=== PATIENT | female | born 1990 | race Caucasian/White ===

== ENCOUNTER 2025-02-15 00:24 | Emergency (ER) | payer OTHER, SELFPAY ==
--- OUTSIDE RECORDS SUMMARY | 2025-01-20 05:50 | XMS_ITS ---
Author Organization [facility] Address [address] [place] [address] Care Team Providers Care Community Services Coordinator Name Role Phone NO PCP Primary Care Provider Maida Rodriguez Unavailable [phone] Allergies Allergen (clinical drug ingredient) Drug/Non Drug Allergy documented on EMR Reaction Allergy Type Onset Date Status Information temporarily unavailable Adhesive Unknown Allergy Active Information temporarily unavailable Amoxicillin Unknown Drug Allergy Active REASON FOR VISIT Possible Poison Juani Medications Medication SIG (Take, Route, Frequency, Duration) Notes Start Date End Date Status Triamcinolone Acetonide 0.1 % 1 application to rash on arms, legs and hands Externally twice a day; Duration: 7 days 01/20/2025 Active predniSONE 10 MG take 4 tablets the f irst 5 days, then take 2 tablets the next 5 days, then take 1 tablet the next 5 days Orally Once a day; Duration: 15 days 01/20/2025 02/04/2025 Active Social History Tobacco Use: Social History Observation Description Date Details (start date - stop date) Never Smoker NA - NA Sex Assigned At : Social History Observation Description Sex Assigned At Female Tobacco Control (Standard) Question Answer Notes Tobacco use: Nonsmoker Problems Problem Type SNOMED Code ICD Code Onset Dates Problem Status W/U Status Risk Notes Problem BMI 36.0-36.9,ad ult (Z68.36) Active confirmed Vital Signs Temperature 97.6 degrees Fahrenheit 01/21/20 25 Respiratory Rate 19 /min 01/20/2025 Blood pressure systolic 100 mm Hg 01/21/20 25 Blood pressure diastolic 70 mm Hg 025 Height 67 in 01/20/2025 Weight 235 lbs 01/20/2025 BMI 36.8 kg/m2 01/20/2025 Oximetry 99 01/20/2025 Encounters Encounter Location Date Provider Diagnosis [id number] [facility] [address] [place] [address] 01/20/2025 Maida Lubin Poison juani dermatitis L23.7 and BMI 36.0-36.9,adult Z68.36 Assessments Encounter Date Diagnosis (ICD Code) Assessment Notes Treatment Notes Treatment Clinical Notes Section Notes 01/20/2025 Poison juani dermatitis (ICD-10 - L23.7) Use cream as directed. Can put cream in refrigerator and cool sensation can help with ithing. Poison Juani, [place], and [place]: Care Instructions material was published, Dermatitis: Care Instructions material was published, Poison Juani, [place], and [place]: Care Instructions material was printed After prednisone was sent to pharmacy, patient shared she took steroids a month ago for poison juani. Advised pt it was not safe to repeat steroids within a the same 3 month timeframe so a cancellation request was sent to pharmcy for that prescription and advised only steroid cream for now. Pt understanding and agreeable to plan of care 01/20/2025 BMI 36.0-36.9,adul t (ICD-10 - Z68.36) Body Mass Index: Care Instructions material was published, Learning About Healthy Weight material was published 01/20/2025 Other Plan Of Treatment Medication Medication Name Sig Start Date Stop Date Notes Triamcinolone Acetonide 0.1 % 1 applicat ion to rash on arms, legs and hands Externally twice a day; Duration: 7 days 01/20/2025 predniSONE 10 MG take 4 tablets the f irst 5 days, then take 2 tablets the next 5 days, then take 1 tablet the next 5 days Orally Once a day; Duration: 15 days 01/20/2025 02/04/2025 Treatment Notes Assessment Notes Poison juani dermatitis Use cream as directed. Can put cream in refrigerator and cool sensation can help with ithing. Poison Juani, [place], and [place]: Care Instructions material was published, Dermatitis: Care Instructions material was published, Poison Juani, [place], and [place]: Care Instructions material was printed BMI 36.0-36.9,adult Body Mass Index: Car e Instructions material was published, Learning About Healthy Weight material was published Next Appt Details Follow Up: Follow up in 4-5 days if s/s persist or worsen, Reason: Progress Notes * Sweetie MATOS:[birth year] (34 yo F)Acc No.[id number]:01/20/2025 Progress Notes Patient: Frida QUINTANA Provider: Jose Lubin APN :1990 A ge:34 Y S ex:Female Date:01/20/2025 External Visit ID:[id number] Address:[address] [place] [address] [facility], [id number] Pcp:NO PCP Subjective: * Chief Complaints: * 1 . Possible Poison Juani. * HPI: D ermatological: 34 year old female presents with c/o rash f or 1 week?both legs, both arms, left hand, Onset: gradual, Severity: getting worse, Nature: itching, Aggravated by: heat, Relieved by: cream minimally, Associated Symptoms: none. Pt states she works outside and does [employer] and is exposed to poison juani frequently . c/o itching. Denies : signs of infection. * ROS: C ONSTITUTIONAL: no c hills. n o f atigue. n o b otoniel aches.?no f ever. * Medical History: A sthma, ADHD. * Surgical History: c -section x 2 , hysterectomy . * Hospitalization/Major Diagno stic Procedure: c hildbirth x 2, , hysterectomy . * Family History: N on-Contributory. * Social History: G eneral*: S igns of Abuse or Neglect: noBetsy Rachael 02/09/2024 12:24:53 PM CDT >, Mimi Meyer 05/30/2024 04:14:39 PM SECRETARY ADMINISTRATIVE ASSISTANT >. .: Betsy hardy Rachael 02/09/2024 12:24:57 PM CDT >. T obacco Use: T obacco Control (Standard) T obacco use: N onsmoker. * Medications: N one * Allergies: A moxicillin: Allergy, Adhesive: Allergy. Objective: * Vitals: T emp:97.6, Pulse:69, RR:19, BP:100/70, Pain (at time of visit):7/10, LNMP: hyst, Ht: 67, Wt: 235, BMI:36.8, Pulse Ox:99. * Examination: F ocused Exam: GENERAL: a lert and oriented x 4, no acute distress, dress appropriate for the environment & temp, well-groomed, appears well. HEAD: s ymmetrical facial features, normocephalic. RESPIRATORY: b reath sounds clear throughout, respiration even and unlabored. CARDIO: S 1 & S2 single sounds, no murmurs, gallops, rubs, or clicks, RRR. NEURO: g ait steady, judgment intact, alert and responsive, oriented to person, place, and time, alert and oriented. DERMATOLOGICAL: r eddened , patches and streaks of m aculopapular rash present on bilateral legs, right forearm, left hand. small area of rash present on left upper arm. no drainage or swelling present.. PSYCH: f riendly attitude. Assessment: * Assessment: 1. P oison juani dermatitis - L23.7 (Primary) 2 . B LA 36.0-36.9,adult - Z68.36 Plan: * Treatment: 2. B LA 36.0-36.9,adult Notes: Body Mass Index: Care Instructions material was published, Learning About Healthy Weight material was published * Follow Up: F ollow up in 4-5 days if s/s persist or worsen * Billing Information: * Visit Code: 43623 Office Visit, Est Pt., Level 3. * Procedure Codes: Care Plan Details* * Sign off status: Completed true * Provider: Jose Lubin APN Date: 01/20/2025 Generated for Cuauhtemoc giordano/Latesha/Karmen on: 02/15/2025 12:56 AM CDT History and Physical Notes * HPI (History of Present Illness) Category Sub-Category Detail Notes Category Not es Dermatological itching signs of infection rash both legs, both arms , left hand, Onset: gradual, Severity: getting worse, Nature: itching, Aggravated by: heat, Relieved by: cream minimally, Associated Symptoms: none. 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 small area of rash present on left upper arm. no drainage or swelling present. PSYCH: friendly attitude CARDIO: S1 & S2 single sound s, no murmurs, gallops, rubs, or clicks, RRR
[2025-02-15 00:29] VITALS: BP 143/73; PULSE 53; RESP 16; TEMP 36.6; O2SAT 98; BMI 34.9
--- NOTE | 2025-02-15 00:32 | ED.GENADULT ---
HPI - General Adult General Time Seen by Provider: 00:32 Date Seen: 02/15/25 Chief complaint: Urogenital Problems, Female Stated complaint: possible bladder infection Time Seen by Provider: 02/15/25 00:31 Source: patient, RN notes reviewed and old records reviewed Mode of arrival: ambulatory Limitations: no limitations History of Present Illness HPI narrative: 34-year-old female who comes in today with dysuria. Patient reports history of urinary tract infections. She has had pain with urination and some lower abdominal pain for the last 4 days. She denies fever, chills, nausea, vomiting, vaginal discharge, or flank pain. Denies possibility of . Related Data Home Medications ?Medication ?Instructions ?Recorded ?Confirmed No Known Home Medications 02/15/25 02/15/25 Allergies Allergy/AdvReac Type Severity Reaction Status Date / Time amoxicillin Allergy Verified 02/15/25 00:32 [facility] PFS Social History Smoking Status: Never smoker Do you use any of these nicotine containing products: None Non-prescribed substance use: denies use Exam Narrative: Exam Narrative: General: well nourished , NAD Head: Atraumatic and normocephalic ENT: External ears and external nose are normal Eyes: Conjunctiva clear, pupils are equal reactive, external ocular motions are intact Neck: Full spontaneous range of motion of the neck Lungs: No respiratory distress Musculoskeletal: No tenderness or deformity Neurologic: No gross focal neurologic deficits Skin: No rashes Psych: Mood and affect are appropriate Abdomen mild suprapubic tenderness, no CVA tenderness Const: Vital Signs, click to edit/add: Vital Signs - 24 hr 02/15/25 00:29 Temperature 97.8 F Pulse Rate [Pulse Oximeter] 53 L Respiratory Rate 16 Blood Pressure [Ri ght Upper Arm] 143/73 H Pulse Oximetry 98 Oxygen Delivery Me thod Room Air Course Course ED Course: No prior records available. Patient presents with dysuria, no flank pain, no fever, no abdominal pain. Urinalysis in the panel interpreted by me is nitrite positive. Patient will be started on Keflex and stable for discharge. Vital Signs Vital signs: Initial Vital Signs Temperature 97.8 F 02/15/25 00:29 Temperature Source Temporal Artery Scan 02/15/25 00:29 Pulse Rate 53 L 02/15/25 00:29 Respiratory Rate 16 02/15/25 00:29 Blood Pressure 143/73 H 02/15/25 00:29 Blood Pressure Mean 96 02/15/25 00:29 Blood Pressure Position Sitting 02/15/25 00:29 Pulse Oximetry 98 02/15/25 00:29 Oxygen Delivery Method Room Air 02/15/25 00:29 Vital Signs Temperature 97.8 F 02/15/25 00:29 Pulse Rate 53 L 02/15/25 00:29 Respiratory Rate 16 02/15/25 00:29 Blood Pressure 143/73 H 02/15/25 00:29 Pulse Oximetry 98 02/15/25 00:29 Oxygen Delivery Method Room Air 02/15/25 00:29 Temperature 97.8 F 02/15/25 00:29 Pulse Rate 53 L 02/15/25 00:29 Respiratory Rate 16 02/15/25 00:29 Blood Pressure 143/73 H 02/15/25 00:29 Pulse Oximetry 98 02/15/25 00:29 Oxygen Delivery Method Room Air 02/15/25 00:29 Medical Decision Making Lab Data Labs: Lab Results 02/15/25 Range/Units 00:29 Urine Color Yellow (Yellow) Urine Appearance Clear (Clear) Urine pH 5.5 (5.0-8.5) Ur Specific [place] >= 1.030 (1.000-1.030) Urine Protein Trace A (Negative) Urine Glucose (UA) Negative (Negative) Urine Ketones Negative (Negative) Urine Blood Negative (Negative) Urine Nitrite Positive A (Negative) Urine Bilirubin Negative (Negative) Urine Urobilinogen 0.2 (0.2-1.0) Ur Leukocyte Esterase Negative (Negative) Discharge Plan Discharge Clinical Impression: Urinary tract infection Patient Disposition: Home, Self-Care Condition: Stable Instructions: Urinary Tract Infection in Women (DC) Additional Instructions: Take Keflex and Pyridium as prescribed Activity Level: No Restrictions Discharge Diet: Regular Prescriptions: No Action No Known Home Medications Stand Alone Forms: [employer] Info Instructions
[2025-02-15 00:34] LABS: Appearance Urine Clear (Clear)
[2025-02-15 00:39] VITALS: BP 128/66; PULSE 50; RESP 18; O2SAT 99
--- OUTSIDE RECORDS SUMMARY | 2025-02-15 00:57 | XMS_ITS | Patient Health Record ---
Author Organization [facility] Address [address] [place] [address] Care Team Providers Care Mobile Marketing Specialist Name Role Phone NO PCP Primary Care Provider Maida Rodriguez Unavailable [phone] Mimi Meyer Unavailable [phone] Allergies Allergen (clinical drug ingredient) Drug/Non Drug Allergy documented on EMR Reaction Allergy Type Onset Date Status Adhesive Unknown Allergy Active amoxicillin Amoxicillin Unknown Drug Allergy Act dante Reason For Referral No Information Medications Medication SIG (Take, Route, Frequency, Duration) Notes Start Date End Date Status Triamcinolone Acetonide 0.1 % 1 application to rash on arms, legs and hands Externally twice a day; Duration: 7 days 01/20/2025 Active Social History Tobacco Use: Social History Observation Description Date Details (start date - stop date) Never Smoker NA - NA Sex Assigned At : Social History Observation Description Sex Assigned At Female Tobacco Control (Standard) Question Answer Notes Tobacco use: Nonsmoker Problems Problem Type SNOMED Code ICD Code Onset Dates Problem Status W/U Status Risk Notes Problem Asthma ([id number]) Asthma (J45.909) Active confirmed Problem BMI 36.0-36.9,rosalino lt (Z68.36) Active confirmed Vital Signs Temperature 97.6 degrees Fahrenheit 01/20/2025 Respiratory Rate 19 /min 01/20/2025 Oximetry 99 01/20/2025 Blood pressure diastolic 70 mm Hg 01/20/2025 Height 67 in 01/20/2025 Blood pressure systolic 100 mm Hg 01/20/2025 Weight 235 lbs 01/20/2025 BMI 36.8 kg/m2 01/20/2025 Encounters Encounter Location Date Provider Diagnosis [id number] [address] 05/30/2024 Mimi Meyer Acute bacterial conjunctivitis of right eye H10.31 and Elevated blood pressure reading R03.0 [id number] [place] [address] 01/20/2025 Maida Lubin Poison juani dermatiti s L23.7 and BMI 36.0-36.9,adult Z68.36 Assessments Encounter Date Diagnosis (ICD Code) Assessment Notes Treatment Notes Treatment Clinical Notes Section Notes 05/30/2024 Acute bacterial conjunctivitis of right eye (ICD-10 - H10.31) [place]: Care Instructions material was published 05/30/2024 Elevated blood pressure reading (ICD-10 - R03.0) Learning About High Blood Pressure material was published 01/20/2025 Poison juani dermatitis (ICD-10 - L23.7) Use cream as directed. Can put cream in refrigerator and cool sensation can help with ithing. Poison Juani, [place], and [place]: Care Instructions material was published, Dermatitis: Care Instructions material was published, Poison Juani, [place], and [place]: Care Instructions material was printed [...] agreeable to plan of care 01/20/2025 BMI 36.0-36.9,adult (ICD-10 - Z68.36) Body Mass Index: Care Instructions material was published, Learning About Healthy Weight material was published 05/30/2024 Other Polymyxin B/Trimethoprim Ophthalmic Solution (POLYMYXIN B/TRIMETHOPRIM - OPHTHALMIC) material was published NOTE to Provider of Record: MIPS recommendations for Pre Hypertensive Reading in the past 12 months (120-129 systolic or >/= 80 diastolic): 1) Recommend to rescreen blood pressure in 2-6 months AND 2) Provide and document recommendations for non-pharmacologic interventions in the Preventative Medicine window, which may include Lifestyle recommendations, Physical Activity recommendations, Weight Reduction Recommendations, or Dietary Recommendations OR Provide and document a referral to alternate care provider 01/20/2025 Other Plan Of Treatment No Information Insurance Providers Payer Name Payer Address Payer Phone Subscriber Number Group Number Insured Name Patient Relationship to Insured Coverage Start Date Coverage End Date PROMPT PAY/Bill to Patient Frida Medina Self - patient is the insured Medical (General) History Medical History History ICD Code Asthma J45.909 ADHD Surgical History Surgery Date(Month/Year) hysterectomy x 2 Hospitalization History Reason Date(Month/Year) hysterectomy childbirth x 2,
== END 2025-02-15 01:00 | disposition home or self-care (01) ==
LOC: ED 00:54
PROVIDERS: Emergency Provider Family Medicine
DX: N39.0 Urinary tract infection, site not specified (principal)
CPT/HCPCS: 81001; 87086; 99282; 99283; 99284